=== PATIENT | female | born 1985 | race Hispanic/Latino ===

== ENCOUNTER 2017-01-15 21:04 | Emergency (ER) | payer MEDICAID, OTHER ==
--- NOTE | 2017-01-15 21:48 | ED PDOC ---
Arrival/HPI <Bam Paris - Last Filed: 01/15/17 22:42> <Sergey Caraballo - Last Filed: 01/16/17 00:24> - General Chief Complaint: Foreign Body Time Seen by Provider: 01/15/17 21:44 - History of Present Illness Narrative History of Present Illness (Text): 01/15/17 21:44 31yo female with a possible tampon stuck in her vagina. Pt states she attempted to remove it about an hour before coming to the ER, and a clot came out. States she is not sure if it's still in. Denies any pain, denies active bleeding, denies weakness. No other complaints. (Bam Paris) Past Medical History - Provider Review Nursing Documentation Reviewed: Yes - Infectious Disease Hx of Infectious Diseases: None - Reproductive Menopause: No - Psychiatric Hx Substance Use: No <Bam Paris - Last Filed: 01/15/17 22:42> Family/Social History Family/Social History: Unknown Family HX Smoking Status: Unknown If Ever Smoked Hx Alcohol Use: Yes Frequency of alcohol use: Socially Hx Substance Use: No <Bam Paris - Last Filed: 01/15/17 22:42> Allergies/Home Meds <Bam Paris - Last Filed: 01/15/17 22:42> <Sergey Caraballo - Last Filed: 01/16/17 00:24> Allergies/Adverse Reactions: Allergies No Known Allergies Allergy (Verified 01/15/17 21:38) Review of Systems - Physician Review All systems were reviewed & negative as marked: Yes - Review of Systems Gastrointestinal: absent: Abdominal Pain, Nausea, Vomiting Genitourinary Female: Other (possible tampon stuck). absent: Frequency, Hematuria <Bam Paris - Last Filed: 01/15/17 22:42> Physical Exam - Systems Exam Abdomen: No: Tenderness, Distention, Rebound, Guarding Genitourinary/Pelvic Exam: Present: Normal External Genitalia, Vaginal Bleeding (scant, no pooling), Cervical os Closed, Other ([facility] ED scribe present during examination. Speculum and bimanual examination showed no visible or palpable FBs ). No: Vaginal Discharge, Cervical Motion Tendernes, Odor <Bam Paris - Last Filed: 01/15/17 22:42> Medical Decision Making <Bam Paris - Last Filed: 01/15/17 22:42> <Sergey Caraballo - Last Filed: 01/16/17 00:24> ED Course and Treatment: 01/15/17 21:52 CT pelvis ordered, as pt wants to be certain there is no FB in her vagina 01/15/17 22:[address] Caraballo pending CT, dispo (Bam Paris) 01/16/17 00:22 Signed out to me at change of shift pending CT as physical exam did not reveal foreign body. FINDINGS: Bowel: Unremarkable. No obstruction. No mucosal thickening. Appendix: No findings to suggest acute appendicitis. Intraperitoneal space: Unremarkable. No free air. No significant fluid collection. Bladder: Unremarkable. No stones. Reproductive: Unremarkable as visualized. Bones/joints: No acute fracture. No dislocation. Soft tissues: Unremarkable. Vasculature: Unremarkable. No lower abdominal aortic aneurysm. Lymph nodes: Unremarkable. No enlarged lymph nodes. IMPRESSION: Unremarkable CT examination of the pelvis, as detailed above. No radiopaque vaginal foreign body. (Sergey Caraballo) - RAD Interpretation Radiology Orders: 01/15/17 21:53 PELVIS W/O PO OR IV CONTRAST [CT] Stat Disposition/Present on Arrival - Present on Arrival History of DVT/PE: No History of Uncontrolled Diabetes: No Urinary Catheter: No History of Decub. Ulcer: No History Surgical Site Infection Following: None <Bam Paris - Last Filed: 01/15/17 22:42> - Present on Arrival Any Indicators Present on Arrival: No - Disposition Have Diagnosis and Disposition been Completed?: Yes Disposition Time: 00:23 Patient Plan: Discharge <Sergey Caraballo - Last Filed: 01/16/17 00:24> - Disposition Diagnosis: Normal pelvic exam Disposition: HOME/ ROUTINE Condition: STABLE Discharge Instructions (ExitCare): Vaginal Foreign Body (ED)
[2017-01-15 22:01] VITALS: RESP 18; TEMP 99.3
--- NOTE | 2017-01-16 00:20 | CT ---
EXAM: CT Pelvis Without Intravenous Contrast CLINICAL HISTORY: 31 years old, female; Signs and symptoms; Other: R/O vaginal fb/tampon TECHNIQUE: Axial computed tomography images of the pelvis without intravenous contrast. This CT exam was performed using one or more of the following dose reduction techniques: automated exposure control, adjustment of the mA and/or kV according to patient size, and/or use of iterative reconstruction technique. Coronal and sagittal reformatted images were created and reviewed. COMPARISON: No relevant prior studies available. FINDINGS: Bowel: Unremarkable. No obstruction. No mucosal thickening. Appendix: No findings to suggest acute appendicitis. Intraperitoneal space: Unremarkable. No free air. No significant fluid collection. Bladder: Unremarkable. No stones. Reproductive: Unremarkable as visualized. Bones/joints: No acute fracture. No dislocation. Soft tissues: Unremarkable. Vasculature: Unremarkable. No lower abdominal aortic aneurysm. Lymph nodes: Unremarkable. No enlarged lymph nodes. IMPRESSION: Unremarkable CT examination of the pelvis, as detailed above. No radiopaque vaginal foreign body.
[2017-01-16 00:40] VITALS: BP 116/60; PULSE 92; O2SAT 100
== END 2017-01-16 00:41 | disposition home or self-care (01) ==
LOC: ED 21:04
DX: Z01.419 Encounter for gynecological examination (general) (routine) without abnormal findings (principal)